=== PATIENT | female | born 1985 | race Two or more races ===

== ENCOUNTER 2020-02-22 05:50 | Day surgery (SDC) | payer OTHER ==
[~2020-02-22 05:50] MED LIST: LEXAPRO5 MG PO; WELLBUTRIN XL300 MG PO
== END 2020-02-22 11:00 | disposition home or self-care (01) ==
LOC: CIR.AMB 05:50
PROVIDERS: ATTEND Surgery
DX: L72.0 Epidermal cyst (principal); Z20.828 Contact with and (suspected) exposure to other viral communicable diseases